=== PATIENT | female | born 1940 | race Caucasian/White ===

== ENCOUNTER 2024-10-10 13:13 | Emergency (ER) | payer MEDICARE, OTHER, SELFPAY ==
[2024-10-10 13:17] VITALS: BP 158/100
--- NOTE | 2024-10-10 13:56 | ED.GENMED ---
History of Present Illness
General
Chief Complaint: Skin Problem
Time Seen by Provider: 10/10/24 13:21
History of Present Illness
History of Present Illness:
CHIEF COMPLAINT(S)
Sensation of a foreign body in the right foot.
HISTORY OF PRESENT ILLNESS
The patient is an 84-year-old female who presents with a sensation of a foreign body in the right foot. Two days ago, the patient broke a glass dish in her apartment and thought she had cleaned it up. The sensation is located near a callus on the
lateral plantar aspect of the distal forefoot, particularly over the fifth metatarsal region. The patient reports feeling the foreign body when pressing on the area, but there is no evidence of protruding glass or other visible abnormalities. She
does not experience tenderness on the plantar surface under the first to fourth metatarsals, but theres a slight sensation over the area of the fifth metatarsal.
PHYSICAL EXAM
- Musculoskeletal: Presence of a callus on the lateral plantar aspect of the right distal forefoot over the fifth metatarsal. The patient reports a sensation of a foreign body upon palpation of this area, but there is no tenderness under the first
to fourth metatarsals.
- Nursing notes reviewed and vital signs reviewed.
PLAN
- Review the x-ray again to correlate findings with the physical examination and address the sensation of the foreign body in the foot.
DIFFERENTIAL DIAGNOSIS
The Differential Diagnosis includes, in no particular order and is not limited to:
1. Foreign body retention
2. Plantar fasciitis
3. Metatarsalgia
4. Bursitis
5. Neuroma
6. Callus-related discomfort
7. Soft tissue injury
8. Peripheral neuropathy
9. Stress fracture
10. Osteoarthritis
CARE-UPDATE
10/10/24 - 13:52
Reassessment of the patients foot revealed no visible foreign body despite the initial suspicion based on symptoms, as nothing was apparent on the x-ray or during a minor incision procedure under local anesthesia with lidocaine and epinephrine. The
physician attempted to open the puncture area but encountered no tangible material. The patient was informed that the sensation might persist due to nerve sensitivity or a microscopic foreign object that could resolve spontaneously. The suggestion
of foot soaking was considered unlikely to aid significantly unless an infection were present. The patient is advised to monitor the area for any persistent or exacerbating symptoms and was given a referral to follow up with a typesetting machine tender for further
evaluation if desired. The patient expressed concern about potential migration of the suspected foreign object, but reassurance was provided that such occurrences are atypical. Additionally, contact information for a typesetting machine tender, Dr. Maria or
another suitable specialist, was provided for follow-up at the patients convenience.
Phy Exam
Physical Exam
Physical Exam:
See HPI
Course
Orders/Labs/Results
Orders:
Orders
10/10/24 13:17
Foot, Right 3 View [CR Foot - Right Min 3 Views] Urgent
Comment:
Reason For Exam: glass in foot
Vital Signs
Initial and Last Documented VS:
Initial Vital Signs
Temp Pulse Resp BP Pulse Ox
37.2 C 77 17 158/100 99
10/10/24 13:17 10/10/24 13:17 10/10/24 13:17 10/10/24 13:17 10/10/24 13:17
Last Documented Vital Signs
Temp Pulse Resp BP Pulse Ox
37.2 C 77 17 158/100 99
10/10/24 13:17 10/10/24 13:17 10/10/24 13:17 10/10/24 13:17 10/10/24 13:17
Procedures
Foreign Body Removal-Skin
Wound explored and foreign body removed?: No
Anesthesia: 1%lidocaine w/epinephrine
Foreign body removed using: forceps and incision
Foreign body removed: none removed
*Critical Care Note
Total Time (30-74mins, 75-104mins- exclusive of procedures): Not Applicable
ED Attending Note
-
Portions of this chart may have been created with voice recognition software.� Occasional wrong word or��sound alike� substitutions may have occurred due to the inherent limitations of voice recognition software.
Discharge Plan
Departure
Patient Disposition: Home (Routine Discharge)
Date of Disposition: 10/10/24
Time of Disposition: 13:53
Patient with high blood pressure during this ER visit?: Yes
Discharge Problem:
Foreign body
Referrals:
Crispin Garcia DPM [Specified Professional Personl, Podiatry]
Jeremias Maria DPM [Active, Podiatry]
Activity Restrictions/Additional Instructions:
The abnormality seen on x-ray does not correlate with the location of your symptoms. I recommend you follow-up with typesetting machine tender such as Dr. Garcia or Dr. Maria.
Interventions
Interventions:
*Risk Screen - Suicide Last Done: 10/10/24 13:19
*General Assessment Last Done: 10/10/24 13:19
*Neglect/Abuse Screening Last Done: 10/10/24 13:19
*ED COVID-19 Vaccine History Last Done: 10/10/24 13:19
Discharge Date and Time
Print Language: LIBERIAN
== END 2024-10-10 14:10 | disposition home or self-care (01) ==
LOC: EMR 13:13
PROVIDERS: EMERGENCY PHYSICIAN Emergency Medicine; FAMILY PHYSICIAN Internal Medicine Geriatric Medicine
DX: S90.851A Superficial foreign body, right foot, initial encounter (principal); W45.8XXA Other foreign body or object entering through skin, initial encounter
CPT/HCPCS: 99283; 10120; 73630